=== PATIENT | male | born 1980 | race Caucasian/White ===

== ENCOUNTER 2019-01-26 23:10 | Emergency (ER) | payer OTHER ==
[~2019-01-26] VITALS: Ht 170.2 cm; Wt 72.6 kg
[~2019-01-26 23:10] MED LIST: ALBIPROI INH; ALBU90OI; ALBU90OI61 INH
[2019-01-27] MEDS ORDERED: Norco 5-325 Ta1 EACH PO (00:26)
[2019-01-30] MEDS ORDERED: FLUT1DIS5 INH (07:53)
== END 2019-01-27 01:29 | disposition home or self-care (01) ==
LOC: ER 23:10
DX: S82.841A Displaced bimalleolar fracture of right lower leg, initial encounter for closed fracture (principal); X58.XXXA Exposure to other specified factors, initial encounter; J45.909 Unspecified asthma, uncomplicated; F17.210 Nicotine dependence, cigarettes, uncomplicated
CPT/HCPCS: 29515; 73610; 99283-25; A9270

== ENCOUNTER 2019-02-04 09:18 | Day surgery (SDC) | payer OTHER ==
[~2019-02-04 09:18] MED LIST changes: +FLUT1DIS5 INH; +Norco 5-325 Ta1 EACH PO
--- NOTE | 2019-02-04 09:59 | NUR ---
History, Chart, Medications and Allergies reviewed before start of procedure. Lungs clear T/O to Auscultation. Patient confirms NPO status and agrees with scheduled surgery. Patient reports completing Chlorhexadine shower X2 prior to admission to hospital.
--- NOTE | 2019-02-05 07:47 | NUR ---
02/05/19 0747 Jayne Arreola VERIFICATIONS: EDIT CHART.
== END 2019-02-04 22:56 | disposition home or self-care (01) ==
LOC: ORSCMMR 09:18 → ORD 11:00 → ORSCMMR 22:56
PROVIDERS: Podiatrist Foot & Ankle Surgery
PROC: 0QSJ04Z Reposition Right Fibula with Internal Fixation Device, Open Approach (ICD-10-PCS; principal; 2019-02-04 11:00)
PROC: 0QSG04Z Reposition Right Tibia with Internal Fixation Device, Open Approach (ICD-10-PCS; principal; 2019-02-04 11:00)
DX: S82.841A Displaced bimalleolar fracture of right lower leg, initial encounter for closed fracture (principal); J45.909 Unspecified asthma, uncomplicated; F17.210 Nicotine dependence, cigarettes, uncomplicated; Z79.899 Other long term (current) drug therapy
CPT/HCPCS: C1713; C1769; J0690; J1100; J2405; J2704; J3010; J7120

== ENCOUNTER → 2020-10-23 | Outpatient (CLI) | payer OTHER ==
[2020-10-23 13:28] LABS: CHOL/HDL RATIO 4.1; Cholesterol 180 mg/dL (50-200); HDL Cholesterol 44 mg/dL (>39); LDL/HDL RATIO 2.1; Low Density Lipoprotein Chol 90 mg/dL (0-110); Triglycerides 228 mg/dL (30-160); Very Low Density Lipoprot Chol 45 mg/dL (6-32)
== END ==
LOC: LAB 11:19 → LAB SHORT 11:19
PROVIDERS: Family Medicine
DX: E78.5 Hyperlipidemia, unspecified (principal); E88.81 Metabolic syndrome and other insulin resistance
CPT/HCPCS: 36415; 80061; 83036